=== PATIENT | male | born 1965 | race Caucasian/White ===

== ENCOUNTER 2018-05-02 21:54 | Emergency (ER) | payer BC, OTHER ==
[2018-05-02] MEDS ORDERED: Albuterol/Ipratropium 3.0-0.5 MG/3 ML Neb Soln NEB ONE (22:17)
--- NOTE | 2018-05-02 22:19 | EDM.PDOC ---
ED HPI GENERAL MEDICAL PROBLEM - General Stated Complaint: SOB CHEST PAIN Time Seen by Provider: 05/02/18 21:54 Source of Information: Reports: Patient History Limitations: Reports: No Limitations - History of Present Illness INITIAL COMMENTS - FREE TEXT/NARRATIVE: 52 y.o.w.m with a h/o Asthma, nonsmoker, came to the ed due to non productive cough in the past latrell days, which does not go away. Pt has f/c as well, chest pain with deep inspiration. No N/V/D or any other acute medical issues. 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) (takes albuterol inhalers) chest Pain Score (Numeric/FACES): 10 - Related Data Allergies Allergy/AdvReac Type Severity Reaction Status Date / Time No Known Allergies Allergy Verified 05/02/18 22:05 Home Meds: Home Meds Albuterol Sulfate [Proair Hfa] 1 puff INH ASDIRECTED 05/02/18 [History] Fluticasone/Salmeterol [Advair 250-50 Diskus] 1 each IH ASDIRECTED 05/02/18 [ History] Levofloxacin [Levaquin] 500 mg PO DAILY #10 tablet 05/02/18 [Rx] ED ROS GENERAL - Review of Systems Review Of Systems: See Below Constitutional: Reports: Fever, Chills HEENT: Reports: No Symptoms Respiratory: Reports: Shortness of Breath, Pleuritic Chest Pain, Cough Cardiovascular: Reports: No Symptoms Endocrine: Reports: No Symptoms GI/Abdominal: Reports: No Symptoms : Reports: No Symptoms Musculoskeletal: Reports: No Symptoms Skin: Reports: No Symptoms Neurological: Reports: No Symptoms Psychiatric: Reports: No Symptoms Hematologic/Lymphatic: Reports: No Symptoms Immunologic: Reports: No Symptoms ED EXAM, GENERAL - Physical Exam Exam: See Below Exam Limited By: No Limitations General Appearance: Alert, WD/WN, Moderate Distress Eye Exam: Bilateral Eye: Normal Inspection Ears: Normal External Exam Ear Exam: Bilateral Ear: Auricle Normal Nose: Normal Inspection, Normal Mucosa, No Blood Throat/Mouth: Normal Inspection, Normal Lips, Normal Voice, No Airway Compromise Head: Atraumatic, Normocephalic Neck: Normal Inspection, Supple, Non-Tender, Full Range of Motion Respiratory/Chest: Decreased Breath Sounds (right lung), Wheezing Cardiovascular: Normal Peripheral Pulses, Regular Rate, Rhythm, No Edema, No Gallop, No Murmur, No Rub Peripheral Pulses: 2+: Brachial (R) GI/Abdominal: Normal Bowel Sounds, Soft, Non-Tender, No Organomegaly, No Distention, No Abnormal Bruit, No Mass, Pelvis Stable (Male) Exam: Deferred Rectal (Males) Exam: Deferred Back Exam: Normal Inspection, Full Range of Motion Extremities: Normal Inspection, Normal Range of Motion, Non-Tender, No Pedal Edema, Normal Capillary Refill Neurological: Alert, Oriented, CN II-XII Intact, Normal Cognition, Normal Gait, No Motor/Sensory Deficits Psychiatric: Normal Affect, Normal Mood Skin Exam: Warm, Dry, Intact, Normal Color, No Rash Lymphatic: No Adenopathy EKG INTERPRETATION EKG Date: 05/02/18 Time: 22:30 Rhythm: NSR Rate (Beats/Min): 111 Imperial: Normal P-Wave: Present QRS: Normal ST-T: Normal QT: Normal Comparison: NA - No Prior EKG Course - Vital Signs Text/Narrative:: 52 y.o.w.m with a h/o Asthma, nonsmoker, came to the ed due to non productive cough in the past latrell days, which does not go away. Pt has f/c as well, chest pain with deep inspiration. No N/V/D or any other acute medical issues. BP 119/ 82 pulse 123 Temp 38.8 RR 18 Pulse ox 97% on RA PE: WNWD W M with fever and a cough Imaging: CXR RML infiltrate, Official report is pending Labs: WBC 16.6 Neutrophils 87% GLC 123 Blcx results are panting, Lactic acid 1.0 Impression: Pneumonia right lower lobe/RML, H/O asthma Tx: Aspirin, Duoneb, Levoquine Reexam: Improved 60% Plan: D/C with instructions Last Recorded V/S: Last Vital Signs Temp 37.3 C 05/02/18 23:51 Pulse 108 H 05/02/18 23:51 Resp 18 05/02/18 23:51 BP 125/76 05/02/18 23:51 Pulse Ox 97 05/02/18 23:51 - Orders/Labs/Meds Orders: Active Orders 24 hr Category Date Time Status EKG Documentation Completion [RC] ASDIRECTED Care 05/02/18 22:21 Active RT Aerosol Therapy [RC] ASDIRECTED Care 05/02/18 22:18 Active CXR [Chest 2V] [CR] Stat Exams 05/02/18 22:18 Taken CULTURE BLOOD [BC] Urgent Lab 05/02/18 22:35 Results CULTURE BLOOD [BC] Urgent Lab 05/02/18 22:45 Received Blood Culture x2 Reflex Set [OM.PC] Urgent Oth 05/02/18 22:17 Ordered EKG 12 Lead [EK] Routine Ther 05/02/18 22:21 Ordered Labs: Laboratory Tests 05/02/18 05/02/18 05/02/18 Range/Units 22:35 22:35 22:35 WBC 16.6 H (4.5-12.0) X10-3/uL RBC 4.26 L (4.30-5.75) x10(6)uL Hgb 14.5 (11.5-15.5) g/dL Hct 41.2 (30.0-51.3) % MCV 96.7 H (80-96) fL MCH 34.0 H (27.7-33.6) pg MCHC 35.2 (32.2-35.4) g/dL RDW 13.1 (11.5-15.5) % Plt Count 298 (125-369) X10(3)uL MPV 9.2 (7.4-10.4) fL Add Manual Diff Yes Neutrophils % (Manual) 87 H (46-82) % Band Neutrophils % 1 (0-6) % Lymphocytes % (Manual) 6 L (13-37) % Monocytes % (Manual) 6 (4-12) % Sodium 135 (135-145) mmol/L Potassium 4.0 (3.5-5.3) mmol/L Chloride 101 (100-110) mmol/L Carbon Dioxide 21 (21-32) mmol/L BUN 17 (7-18) mg/dL Creatinine 1.2 (0.70-1.30) mg/dL Est Cr Clr Drug Dosing 72.01 mL/min Estimated GFR (MDRD) > 60 (>60) BUN/Creatinine Ratio 14.2 (9-20) Glucose 137 H (80-116) mg/dL Lactic Acid 1.0 (0.4-2.2) mmol/L Calcium 9.7 (8.6-10.2) mg/dL Troponin I (<0.017-0.056) ng/mL 05/02/18 Range/Units 22:35 WBC (4.5-12.0) X10-3/uL RBC (4.30-5.75) x10(6)uL Hgb (11.5-15.5) g/dL Hct (30.0-51.3) % MCV (80-96) fL MCH (27.7-33.6) pg MCHC (32.2-35.4) g/dL RDW (11.5-15.5) % Plt Count (125-369) X10(3)uL MPV (7.4-10.4) fL Add Manual Diff Neutrophils % (Manual) (46-82) % Band Neutrophils % (0-6) % Lymphocytes % (Manual) (13-37) % Monocytes % (Manual) (4-12) % Sodium (135-145) mmol/L Potassium (3.5-5.3) mmol/L Chloride (100-110) mmol/L Carbon Dioxide (21-32) mmol/L BUN (7-18) mg/dL Creatinine (0.70-1.30) mg/dL Est Cr Clr Drug Dosing mL/min Estimated GFR (MDRD) (>60) BUN/Creatinine Ratio (9-20) Glucose (80-116) mg/dL Lactic Acid (0.4-2.2) mmol/L Calcium (8.6-10.2) mg/dL Troponin I < 0.017 L (<0.017-0.056) ng/mL Meds: Medications Discontinued Medications Generic Name Dose Route Start Last Admin Trade Name Freq PRN Reason Stop Dose Admin Albuterol/Ipratropium 3 ml 05/02/18 22:17 05/02/18 22:24 Duoneb 3.0-0.5 Mg/3 Ml NEB 05/02/18 22:18 3 ml ONETIME ONE Administration Aspirin 324 mg 05/02/18 22:21 05/02/18 22:24 Aspirin PO 05/02/18 22:22 324 mg ONETIME ONE Administration Levofloxacin 500 mg 05/02/18 22:52 05/02/18 22:56 Levaquin PO 05/02/18 22:53 500 mg ONETIME ONE Administration Departure - Departure Time of Disposition: 23:17 Disposition: Home, Self-Care 01 Condition: Good Clinical Impression: Pneumonia Qualifiers: Laterality: right Lung location: middle lobe of lung - Discharge Information Prescriptions: Levofloxacin [Levaquin] 500 mg PO DAILY #10 tablet Instructions: Levofloxacin tablets, Community-Acquired Pneumonia, Adult, Easy- to-Read Referrals: PCP,None [Primary Care Provider] - Forms: ED Return to Work/School Form Additional Instructions: Please use your Alb inhalers, take the Abx as recommended, please f/u, come back if our symptoms get worse acutely - My Orders Last 24 Hours: My Active Orders 05/02/18 22:17 Blood Culture x2 Reflex Set [OM.PC] Urgent 05/02/18 22:18 RT Aerosol Therapy [RC] ASDIRECTED CXR [Chest 2V] [CR] Stat 05/02/18 22:21 EKG Documentation Completion [RC] ASDIRECTED EKG 12 Lead [EK] Routine 05/02/18 22:35 CULTURE BLOOD [BC] Urgent 05/02/18 22:45 CULTURE BLOOD [BC] Urgent - Assessment/Plan Last 24 Hours: My Active Orders 05/02/18 22:17 Blood Culture x2 Reflex Set [OM.PC] Urgent 05/02/18 22:18 RT Aerosol Therapy [RC] ASDIRECTED CXR [Chest 2V] [CR] Stat 05/02/18 22:21 EKG Documentation Completion [RC] ASDIRECTED EKG 12 Lead [EK] Routine 05/02/18 22:35 CULTURE BLOOD [BC] Urgent 05/02/18 22:45 CULTURE BLOOD [BC] Urgent
[2018-05-02] MEDS ORDERED: Aspirin 81 MG Tab.Chew PO ONE (22:21)
[2018-05-02] MEDS ORDERED: Levofloxacin 500 MG Tab PO ONE (22:52)
== END 2018-05-02 23:51 | disposition home or self-care (01) ==
LOC: FB.ED 21:54
DX: J18.1 Lobar pneumonia, unspecified organism (principal)
CPT/HCPCS: 36415; 71046; 80048; 83605; 84484; 85025; 87040; 93005; 94640; 99285; A9270; J7620-GY

== ENCOUNTER 2018-05-17 12:25 | Emergency (ER) | payer OTHER ==
--- NOTE | 2018-05-17 12:40 | EDM.PDOC ---
ED HPI GENERAL MEDICAL PROBLEM - General Stated Complaint: RT ANKLE PAIN Time Seen by Provider: 05/17/18 12:25 Source of Information: Reports: Patient History Limitations: Reports: No Limitations - History of Present Illness INITIAL COMMENTS - FREE TEXT/NARRATIVE: 52 y.o.w.m came to the ed after he twisted his r ankle at work while stepping on a rock. Pt is able to ambulate but he is limping a little. No other acute medical issues. BP 127/77 RR 18 Pulse ox 97% on RA pules 77 Temp 36.8 Onset Date: 05/17/18 Onset Time: 11:00 Duration: Hour(s): Location: Reports: Lower Extremity, Right (ankle) Quality: Reports: Ache, Burning, Dull Severity: Mild Improves with: Reports: Rest Worsens with: Reports: Movement Context: Reports: Trauma Associated Symptoms: Reports: No Other Symptoms Right ankle Pain Score (Numeric/FACES): 8 - Related Data Allergies Allergy/AdvReac Type Severity Reaction Status Date / Time No Known Allergies Allergy Verified 05/17/18 12:35 Home Meds: Home Meds Albuterol Sulfate [Proair Hfa] 1 puff INH ASDIRECTED 05/02/18 [History] Fluticasone/Salmeterol [Advair 250-50 Diskus] 1 each IH ASDIRECTED 05/02/18 [ History] Levofloxacin [Levaquin] 500 mg PO DAILY #10 tablet 05/02/18 [Rx] Past Medical History Respiratory History: Reports: Asthma Social & Family History - Family History Family Medical History: Noncontributory - Caffeine Use Caffeine Use: Reports: Soda Review of Systems - Review of Systems Review Of Systems: See Below Constitutional: Reports: No Symptoms Eyes: Reports: No Symptoms Ears: Reports: No Symptoms Nose: Reports: No Symptoms Mouth/Throat: Reports: No Symptoms Respiratory: Reports: No Symptoms Cardiovascular: Reports: No Symptoms GI/Abdominal: Reports: No Symptoms Genitourinary: Reports: No Symptoms Musculoskeletal: Reports: Joint Swelling (rightankle) Skin: Reports: No Symptoms Neurological: Reports: No Symptoms Psychiatric: Reports: No Symptoms ED EXAM, GENERAL - Physical Exam Exam: See Below Exam Limited By: No Limitations General Appearance: Alert, WD/WN, Mild Distress Eye Exam: Bilateral Eye: Normal Inspection Ears: Normal External Exam Ear Exam: Bilateral Ear: Auricle Normal Nose: Normal Inspection, Normal Mucosa, No Blood Throat/Mouth: Normal Lips, Normal Voice, No Airway Compromise Head: Atraumatic, Normocephalic Neck: Normal Inspection, Non-Tender, Full Range of Motion Respiratory/Chest: No Respiratory Distress, Lungs Clear, Normal Breath Sounds ( poor insp effort), Chest Non-Tender Cardiovascular: Normal Peripheral Pulses, Regular Rate, Rhythm, No Edema, No Gallop Peripheral Pulses: 2+: Brachial (L) GI/Abdominal: Normal Bowel Sounds, Soft, Non-Tender, No Organomegaly (Male) Exam: Deferred Rectal (Males) Exam: Deferred Back Exam: Normal Inspection Extremities: Normal Inspection, Joint Swelling (right ankle, minor) Neurological: Alert, Oriented, CN II-XII Intact, Normal Cognition, Abnormal Gait (right ankle pain) Psychiatric: Normal Affect, Normal Mood Course - Vital Signs Text/Narrative:: 52 y.o.w.m came to the ed after he twisted his r ankle at work while stepping on a rock. Pt is able to ambulate but he is limping a little. No other acute medical issues. BP 127/77 RR 18 Pulse ox 97% on RA pules 77 Temp 36.8 PE: WNWD w m with right ankle discomfort Imaging: right ankle: NAD as per RAD Impression: Right ankle sprain Tx: ICE, Motrin Reexam: Improved Plan: D/C with instructions Last Recorded V/S: Last Vital Signs Temp 36.7 C 05/17/18 13:40 Pulse 80 05/17/18 13:40 Resp 16 05/17/18 13:40 BP 124/80 05/17/18 13:40 Pulse Ox 97 05/17/18 13:40 - Orders/Labs/Meds Orders: Active Orders 24 hr Category Date Time Status Ice Therapy [OM.PC] Routine Oth 05/17/18 12:38 Ordered Meds: Medications Discontinued Medications Generic Name Dose Route Start Last Admin Trade Name Freq PRN Reason Stop Dose Admin Ibuprofen 600 mg 05/17/18 12:38 05/17/18 12:48 Motrin PO 05/17/18 12:39 Not Given ONETIME ONE Departure - Departure Time of Disposition: 13:34 Disposition: Home, Self-Care 01 Condition: Good Clinical Impression: Moderate ankle sprain Qualifiers: Encounter type: initial encounter Laterality: right Qualified Code(s): S93.401A - Sprain of unspecified ligament of right ankle, initial encounter - Discharge Information Instructions: Ankle Sprain, [id number] Referrals: PCP,None [Primary Care Provider] - Forms: ED Return to Work/School Form Additional Instructions: ICE, Rest and elevation. Motrin for pain.Please f/u, come back if your symptoms get worse acutely - My Orders Last 24 Hours: My Active Orders 05/17/18 12:38 Ice Therapy [OM.PC] Routine - Assessment/Plan Last 24 Hours: My Active Orders 05/17/18 12:38 Ice Therapy [OM.PC] Routine
[2018-05-17] MEDS: Ibuprofen 600 MG Tab PO ONE ×2 (12:47→12:48)
--- NOTE | 2018-05-17 14:49 | CR ---
INDICATION: Trauma, stepped wrong on a rock and rolled ankle. RIGHT ANKLE: Three views of the right ankle revealed the ankle mortise to appear fairly intact with only some minimal hypertrophic change off the medial malleolus, which may be on the basis of previous trauma - posttraumatic osteoarthritis of minimal degree. The ankle mortise was otherwise unremarkable without evidence of a fracture, dislocation, or other significant bone or joint abnormality. Report was given by phone to Dr. Manzo at 1330 hours on 05/17/18. RACHEL
== END 2018-05-17 13:45 | disposition home or self-care (01) ==
LOC: FB.ED 12:25
DX: S93.401A Sprain of unspecified ligament of right ankle, initial encounter (principal); X50.0XXA Overexertion from strenuous movement or load, initial encounter; Z79.899 Other long term (current) drug therapy
CPT/HCPCS: 73610-RT; 99283; A9270-GY

== ENCOUNTER 2019-12-09 20:27 | Emergency (ER) | payer OTHER ==
[2019-12-09] MEDS ORDERED: LORazepam 2 MG/ML SDV IM STA (21:35)
--- NOTE | 2019-12-09 22:01 | EDM.PDOC ---
ED HPI GENERAL MEDICAL PROBLEM - General Stated Complaint: ANXIETY Time Seen by Provider: 12/09/19 21:50 Source of Information: Reports: Patient History Limitations: Reports: No Limitations - History of Present Illness INITIAL COMMENTS - FREE TEXT/NARRATIVE: Patient presented to the ED because of chest pain for 2 weeks. the pain is sharp,5/10, worse with movements. there is no N/V. He however c/o peripheral numbness and tingling. H was seen in the clinic yesterday and EKG and CXR were both negative. - Related Data Allergies Allergy/AdvReac Type Severity Reaction Status Date / Time No Known Allergies Allergy Verified 05/17/18 12:35 Home Meds: Home Meds Albuterol Sulfate [Proair Hfa] 1 puff INH ASDIRECTED 05/02/18 [History] Fluticasone Propion/Salmeterol [Advair 250-50 Diskus] 1 each IH ASDIRECTED 05/02/18 [History] Levofloxacin [Levaquin] 500 mg PO DAILY #10 tablet 05/02/18 [Rx] Past Medical History Respiratory History: Reports: Asthma Social & Family History - Family History Family Medical History: Noncontributory - Caffeine Use Caffeine Use: Reports: Soda ED ROS GENERAL - Review of Systems Review Of Systems: See Below Constitutional: Reports: No Symptoms HEENT: Reports: No Symptoms Respiratory: Reports: Shortness of Breath Cardiovascular: Reports: Chest Pain Endocrine: Reports: No Symptoms GI/Abdominal: Reports: No Symptoms : Reports: No Symptoms Musculoskeletal: Reports: No Symptoms Skin: Reports: No Symptoms Neurological: Reports: No Symptoms Psychiatric: Reports: No Symptoms ED EXAM, GENERAL - Physical Exam Exam: See Below Exam Limited By: No Limitations General Appearance: Alert, No Apparent Distress Ears: Normal External Exam, Normal Canal, Hearing Grossly Normal Nose: Normal Inspection, Normal Mucosa, No Blood Throat/Mouth: Normal Inspection, Normal Lips, Normal Teeth, Normal Gums Head: Atraumatic, Normocephalic Neck: Normal Inspection, Supple, Non-Tender, Full Range of Motion Respiratory/Chest: No Respiratory Distress, Lungs Clear, Normal Breath Sounds Cardiovascular: Normal Peripheral Pulses, Regular Rate, Rhythm, No Edema, No Gallop GI/Abdominal: Normal Bowel Sounds, Soft, Non-Tender, No Organomegaly Back Exam: Normal Inspection, Full Range of Motion Extremities: Normal Inspection, Normal Range of Motion Course - Vital Signs Text/Narrative:: Labs/EKG was result was discussed with patient Aspirin 324 mg po x1 Ativan 1 mg IM - Orders/Labs/Meds Orders: Active Orders 24 hr Category Date Time Status EKG Documentation Completion [RC] ASDIRECTED Care 12/09/19 20:51 Active Chest 1V Frontal [CR] Stat Exams 12/09/19 20:51 Taken D-DIMER QUANTITATIVE [COAG] Stat Lab 12/09/19 21:20 Received EKG 12 Lead [EK] Routine Ther 12/09/19 20:51 Ordered Labs: Laboratory Tests 12/09/19 12/09/19 12/09/19 Range/Units 21:20 21:20 21:20 WBC 6.0 (4.5-12.0) X10-3/uL RBC 4.27 L (4.30-5.75) x10(6)uL Hgb 13.4 L (13.5-17.8) g/dL Hct 39.9 (30.0-51.3) % MCV 93.5 (80-96) fL MCH 31.3 (27.7-33.6) pg MCHC 33.5 (32.2-35.4) g/dL RDW 13.1 (11.5-15.5) % Plt Count 322 (125-369) X10(3)uL MPV 8.5 (7.4-10.4) fL Neut % (Auto) 58.4 (46-82) % Lymph % (Auto) 30.2 (13-37) % Ceiba % (Auto) 8.6 (4-12) % Eos % (Auto) 2 (1.0-5.0) % Baso % (Auto) 1 (0-2) % Neut # (Auto) 3.6 (1.6-8.3) # Lymph # (Auto) 1.8 (0.6-5.0) # Ceiba # (Auto) 0.5 (0.0-1.3) # Eos # (Auto) 0.1 (0.0-0.8) # Baso # (Auto) 0.0 (0.0-0.2) # Sodium 140 (135-145) mmol/L Potassium 3.6 (3.5-5.3) mmol/L Chloride 103 (100-110) mmol/L Carbon Dioxide 25 (21-32) mmol/L BUN 21 H (7-18) mg/dL Creatinine 0.9 (0.70-1.30) mg/dL Est Cr Clr Drug Dosing TNP Estimated GFR (MDRD) > 60 (>60) BUN/Creatinine Ratio 23.3 H (9-20) Glucose 110 (80-116) mg/dL Calcium 9.0 (8.6-10.2) mg/dL Total Bilirubin 0.4 (0.1-1.3) mg/dL AST 20 (5-25) IU/L ALT 30 (12-36) U/L Alkaline Phosphatase 74 (56-112) IU/L Troponin I 5.4 (4.0-60.3) pg/mL Total Protein 7.2 (6.0-8.0) g/dL Albumin 3.7 (3.5-5.2) g/dL Globulin 3.5 g/dL Albumin/Globulin Ratio 1.1 Meds: Medications Discontinued Medications Generic Name Dose Route Start Last Admin Trade Name Yocasta PRN Reason Stop Dose Admin Lorazepam 1 mg 12/09/19 21:35 12/09/19 21:46 Ativan IM 12/09/19 21:36 1 mg NOW STA Administration Departure - Departure Time of Disposition: 22:10 Disposition: Home, Self-Care 01 Condition: Good Clinical Impression: Chest wall pain, Situational anxiety Referrals: PCP,None [Primary Care Provider] - Additional Instructions: please read discharge instructions on situational anxiety and chest wall pain Take ibuprofen 800 mg with tylenol 1000 mg every 8 hours as needed for yiur chest wall cristela Follow up with your doctor if your chest pain and anxiety keep coming back. - My Orders Last 24 Hours: My Active Orders 12/09/19 20:51 EKG Documentation Completion [RC] ASDIRECTED Chest 1V Frontal [CR] Stat EKG 12 Lead [EK] Routine 12/09/19 21:20 D-DIMER QUANTITATIVE [COAG] Stat - Assessment/Plan Last 24 Hours: My Active Orders 12/09/19 20:51 EKG Documentation Completion [RC] ASDIRECTED Chest 1V Frontal [CR] Stat EKG 12 Lead [EK] Routine 12/09/19 21:20 D-DIMER QUANTITATIVE [COAG] Stat
[2019-12-09] MEDS ORDERED: Aspirin 81 MG Tab.Chew PO ONE (22:12)
--- NOTE | 2019-12-13 10:18 | CR ---
INDICATION: Chest pain. CHEST ONE VIEW: AP portable upright view of the chest was obtained 12/09/19 and compared with 12/08/19, clinic examination 05/02/18. The heart remains normal in size and shape. Mediastinum is essentially unremarkable except for some very minimal tortuosity of the aorta. Overlying EKG leads are noted. Pulmonary markings are similar to the previous examination without definite active infiltrate or effusion. IMPRESSION: No acute process - stable appearance of the chest. MTDD
== END 2019-12-09 22:27 | disposition home or self-care (01) ==
LOC: FB.ED 20:27
DX: F41.9 Anxiety disorder, unspecified (principal); J45.909 Unspecified asthma, uncomplicated
CPT/HCPCS: 36415; 71045; 80053; 84484; 85025; 85379; 93005; 96372; 99285-25; A9270-GY; J2060

== ENCOUNTER 2020-09-12 11:02 | Emergency (ER) | payer OTHER ==
[2020-09-12] MEDS ORDERED: Lidocaine 1% 20 ML MDV INFILT ONE (11:03)
[2020-09-12] MEDS ORDERED: Diphtheria,Pertussis(Acell),Tetanus Vaccine 0.5 ML Syringe IM ONE (11:34)
--- NOTE | 2020-09-12 12:01 | EDM.PDOC ---
ED HPI GENERAL MEDICAL PROBLEM - General Stated Complaint: SCREW IN ARM Time Seen by Provider: 09/12/20 11:10 Source of Information: Reports: Patient History Limitations: Reports: No Limitations - History of Present Illness INITIAL COMMENTS - FREE TEXT/NARRATIVE: Patient presented to the ED because of a 3 cm laceration on the left forearm. A screw was hanging on the the wall and he didn't see it and was trying to get a hose. - Related Data Allergies Allergy/AdvReac Type Severity Reaction Status Date / Time No Known Allergies Allergy Verified 05/17/18 12:35 Home Meds: Home Meds Albuterol Sulfate [Proair Hfa] 1 puff INH ASDIRECTED 05/02/18 [History] Fluticasone Propion/Salmeterol [Advair 250-50 Diskus] 1 each IH ASDIRECTED 05/02/18 [History] Levofloxacin [Levaquin] 500 mg PO DAILY #10 tablet 05/02/18 [Rx] hydrOXYzine pamoate [Vistaril] 50 mg PO Q8H PRN #30 cap 12/09/19 [Rx] cephALEXin [Keflex] 500 mg PO Q8H #30 cap 09/12/20 [Rx] Past Medical History Respiratory History: Reports: Asthma Social & Family History - Family History Family Medical History: No Pertinent Family History - Caffeine Use Caffeine Use: Reports: Soda Review of Systems - Review of Systems Review Of Systems: See Below Constitutional: Reports: No Symptoms Eyes: Reports: No Symptoms Ears: Reports: No Symptoms Nose: Reports: No Symptoms Mouth/Throat: Reports: No Symptoms Respiratory: Reports: No Symptoms Cardiovascular: Reports: No Symptoms GI/Abdominal: Reports: No Symptoms Genitourinary: Reports: No Symptoms Musculoskeletal: Reports: No Symptoms Skin: Reports: Wound Psychiatric: Reports: No Symptoms ED EXAM, GENERAL - Physical Exam Exam: See Below Exam Limited By: No Limitations General Appearance: Alert, No Apparent Distress Ears: Normal External Exam, Normal Canal, Normal TMs Nose: Normal Inspection, No Blood Throat/Mouth: Normal Inspection, Normal Lips, Normal Teeth Head: Atraumatic Neck: Normal Inspection Respiratory/Chest: No Respiratory Distress, Lungs Clear, Normal Breath Sounds Cardiovascular: Normal Peripheral Pulses, Regular Rate, Rhythm, No Edema, No Gallop GI/Abdominal: Normal Bowel Sounds, Soft, Non-Tender, No Organomegaly Back Exam: Normal Inspection, Full Range of Motion Extremities: Normal Inspection, Normal Range of Motion, Non-Tender Neurological: Alert, Oriented, CN II-XII Intact, Normal Cognition, Normal Reflexes, No Motor/Sensory Deficits Psychiatric: Normal Affect, Normal Mood Skin Exam: Warm, Other (3 cm laceration left forearm) ED TRAUMA EXTREMITY PROCEDURES - Laceration/Wound Repair Left Arm Lac/Wound Length In cm: 3 Appearance: Superficial, Subcutaneous Distal NVT: Neuro & Vascular Intact Anesthetic Type: Local Local Anesthesia - Lidocaine (Xylocaine): 1% Plain Local Anesthetic Volume: 3cc Skin Prep: Chlorhexidine (Hibiciens), Saline Saline Irrigation (cc's): 5 Closed With: Sutures Suture Size: 3-0 # of Sutures: 4 Suture Type: Nylon Course - Vital Signs Text/Narrative:: TDap - Orders/Labs/Meds Orders: Active Orders 24 hr Category Date Time Status Vaccines to be Administered [RC] PER UNIT ROUTINE Care 09/12/20 11:35 Active Meds: Medications Discontinued Medications Generic Name Dose Route Start Last Admin Trade Name Yocasta PRN Reason Stop Dose Admin Diphtheria/Tetanus/Acell Pertussis 0.5 ml 09/12/20 11:34 09/12/20 11:41 Diphtheria,Pertussis(Acell),Tetanus Vaccine 0.5 Ml Syringe IM 09/12/20 11:35 0.5 ml .ONCE ONE Administration Departure - Departure Time of Disposition: 12:00 Disposition: Home, Self-Care 01 Condition: Good Clinical Impression: Laceration - Discharge Information Prescriptions: cephALEXin [Keflex] 500 mg PO Q8H #30 cap Instructions: Laceration Care, Adult Additional Instructions: Please read discharge instructions on laceration Removal of suture in the clinic after 10 days Cover your wound only when you are working Keflex 500 mg 3 times daily for 10 days Ibuprofen 800 mg with tylenol 1000 mg every 8 hours as needed for pain See your clinic doctor right away if you develop any increasing pain, redness, swelling, pus discharge and fever - My Orders Last 24 Hours: My Active Orders 09/12/20 11:35 Vaccines to be Administered [RC] PER UNIT ROUTINE - Assessment/Plan Last 24 Hours: My Active Orders 09/12/20 11:35 Vaccines to be Administered [RC] PER UNIT ROUTINE
== END 2020-09-12 12:50 | disposition home or self-care (01) ==
LOC: FB.ED 11:02
DX: S51.812A Laceration without foreign body of left forearm, initial encounter (principal); J45.909 Unspecified asthma, uncomplicated; Z79.899 Other long term (current) drug therapy; Z23 Encounter for immunization; W27.0XXA Contact with workbench tool, initial encounter
CPT/HCPCS: 12002; 90471; 90715; 99000; 99282; 99282-25